=== PATIENT | male | born 1980 | race Caucasian/White ===

== ENCOUNTER 2017-03-19 12:25 | Emergency (ER) | payer OTHER ==
[~2017-03-19] VITALS: Ht 172.7 cm; Wt 83.0 kg
[2017-03-19] MEDS ORDERED: BACITRACIN ZINC OINT UDPKT TOP ONE (14:15)
[2017-03-19] MEDS ORDERED: ONDANSETRON HCL 4MG/2ML VIAL IV STA (14:15)
[2017-03-19] MEDS ORDERED: CLONIDINE 0.1MG TABLET PO ONE (14:15)
[2017-03-19] MEDS ORDERED: TETANUS, DIPHTHERIA, PERTUSSIS VAC/PF 0.5ML (>7YR OLD) IM ONE (14:15)
[2017-03-19] MEDS ORDERED: SODIUM CHLORIDE 0.9% 1,000 ML IV ONE (14:15)
[2017-03-19 14:36] LABS: HEMATOCRIT. 48.9 % (42.0-52.0); HEMOGLOBIN. 16.1 g/dL (14.0-18.0); MEAN CORPUSCULAR HEMOGLOBIN 27.2 pg (28.0-32.0); MEAN CORPUSCULAR VOLUME 82.7 fL (80.0-94.0); PLATELET 348 x1000/uL (130-400); RED BLOOD CELL COUNT 5.91 mill/uL (4.7-6.1); RED CELL DISTRIBUTION WIDTH 15.6 % (11.6-14.6)
[2017-03-19 14:51] LABS: CARBON DIOXIDE 26 mEq/L (21-32); CHLORIDE 103 mEq/L (98-107); CREATINE KINASE 103 IU/L (39-308); ETHANOL BLOOD < 10 mg/dL
[2017-03-19] MEDS ORDERED: SODIUM CHLORIDE 0.9% 1000ML BAG (SEPSIS BOLUS) IV ONE (15:15)
[2017-03-19 15:22] LABS: PLATELET ESTIMATE NORMAL
[2017-03-19 17:08] VITALS: BP 145/83
== END 2017-03-19 17:17 | disposition home or self-care (01) ==
LOC: ER 12:33
DX: F11.23 Opioid dependence with withdrawal (principal); T40.2X5A Adverse effect of other opioids, initial encounter; E86.0 Dehydration; D72.829 Elevated white blood cell count, unspecified; R11.2 Nausea with vomiting, unspecified; R56.9 Unspecified convulsions; Y92.89 Other specified places as the place of occurrence of the external cause; G89.29 Other chronic pain
CPT/HCPCS: 36415; 70450; 71010; 80053; 82550; 83605; 83690; 83735; 85025; 90715; 93005; 96361; 96374; 99285; G0482; J2405; J7030; J7040; X7700; Z7610